=== PATIENT | female | born 1985 | race Caucasian/White ===

== ENCOUNTER → 2020-09-03 11:25 | Outpatient (BNVA) | payer BC, SELFPAY | PROVIDERS: Family Provider Family Medicine; Visit Provider Nurse Practitioner Women's Health | DX: R10.2 Pelvic and perineal pain (principal); Z12.4 Encounter for screening for malignant neoplasm of cervix | CPT/HCPCS: 87491; 87591; 87661; 88175 ==

== ENCOUNTER → 2020-09-04 09:46 | Outpatient (BNVA) | payer BC, SELFPAY | PROVIDERS: Family Provider Family Medicine; Visit Provider Nurse Practitioner Women's Health | DX: R10.2 Pelvic and perineal pain (principal) | CPT/HCPCS: 76830 ==

== ENCOUNTER 2020-10-09 16:18 | Emergency (ER) | payer SELFPAY ==
[2020-10-09 16:42] VITALS: BP 149/87; PULSE 75; RESP 18; TEMP 37; O2SAT 97; BMI 31.3
[2020-10-09 16:49] VITALS: BP 127/75; PULSE 82; RESP 18; O2SAT 98
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
[2020-10-09 18:36] VITALS: BP 132/74; PULSE 74; RESP 18; O2SAT 99
== END 2020-10-09 18:37 | disposition home or self-care (01) ==
PROVIDERS: Emergency Provider Nurse Practitioner Family; PCP Family Medicine
DX: S16.1XXA Strain of muscle, fascia and tendon at neck level, initial encounter (principal); S60.221A Contusion of right hand, initial encounter; V89.2XXA Person injured in unspecified motor-vehicle accident, traffic, initial encounter; Z87.891 Personal history of nicotine dependence
CPT/HCPCS: 12345; 70450; 72125; 73130; 99281; 99283